=== PATIENT | male | born 1950 | race Hispanic/Latino ===

== ENCOUNTER 2017-09-24 01:10 | Emergency (ER) | payer SELFPAY ==
[~2017-09-24] VITALS: Ht 165.1 cm; Wt 62.1 kg
--- OUTSIDE RECORDS SUMMARY | 2017-09-24 01:12 | XMS REPORT ---
Author Author [facility] Address Unknown Phone Unavailable Care Team Providers Care Quality Specialist Name Role Phone Unavailable Unavailable Problems This patient has no known problems. Allergies, Adverse Reactions, Alerts This patient has no known allergies or adverse reactions. Medications This patient has no known medications. Encounters Start Date/Time End Date/Time Encounter Type Admission Type Attending [facility] Care Department Encounter ID 2017-09-25 00:00:00 2017-09-25 00:00:00 Outpatient [facility] [id number] 2017-09-18 00:00:00 2017-09-18 00:00:00 Outpatient [facility] [id number] 2017-08-26 00:00:00 2017-08-26 00:00:00 Outpatient [facility] [id number] 2017-08-14 00:00:00 2017-08-14 00:00:00 Outpatient [facility] [id number] 2017-08-14 00:00:00 2017-08-14 00:00:00 Outpatient [facility] [id number] 2017-07-06 00:00:00 2017-07-06 00:00:00 Outpatient [facility] [id number] 2017-07-03 10:38:19 2017-07-03 10:38:19 Outpatient [facility] [id number] 2017-07-03 00:00:00 2017-07-03 00:00:00 Outpatient [facility] [id number] 2017-07-01 07:21:37 2017-07-01 07:21:37 Outpatient [facility] [id number] 2017-06-26 16:43:07 2017-06-26 16:43:07 Outpatient [facility] [id number] 2017-06-24 16:41:59 2017-06-24 16:41:59 Outpatient [facility] [id number] 2017-06-24 14:24:41 2017-06-24 14:24:41 Outpatient [facility] [id number] 2017-06-19 00:00:00 2017-06-19 00:00:00 Outpatient [facility] [id number] 2017-06-17 09:10:44 2017-06-17 09:10:44 Outpatient [facility] [id number] 2017-06-15 00:00:00 2017-06-15 00:00:00 Outpatient [facility] [id number] 2017-06-12 14:29:14 2017-06-12 14:29:14 Outpatient [facility] [id number] 2017-06-12 11:37:55 2017-06-12 11:37:55 Outpatient [facility] [id number] 2017-06-11 09:55:07 2017-06-11 09:55:07 Outpatient [facility] [id number] 2017-06-03 15:07:54 2017-06-03 15:07:54 Outpatient [facility] [id number] 2017-06-03 00:00:00 2017-06-03 00:00:00 Outpatient [facility] [id number] 2017-06-03 00:00:00 2017-06-03 00:00:00 Outpatient [facility] [id number] 2017-05-14 16:06:43 2017-05-14 16:06:43 Outpatient [facility] [id number] 2017-05-14 15:25:00 2017-05-14 15:25:00 Outpatient [facility] [id number] 2017-05-14 13:54:35 2017-05-14 13:54:35 Outpatient [facility] [id number] 2017-02-23 00:00:00 2017-02-23 00:00:00 Outpatient [facility] [id number] 2017-02-18 00:00:00 2017-02-18 00:00:00 Outpatient [facility] [id number] 2017-02-12 09:47:53 2017-02-12 09:47:53 Outpatient [facility] [id number] 2017-02-02 00:00:00 2017-02-02 00:00:00 Outpatient [facility] [id number] 2017-01-30 07:40:02 2017-01-30 07:40:02 Outpatient [facility] [id number] 2017-01-15 14:05:44 2017-01-15 14:05:44 Outpatient [facility] [id number] 2017-01-15 12:58:59 2017-01-15 12:58:59 Outpatient [facility] [id number] 2017-01-06 10:32:00 2017-01-06 10:32:00 Outpatient [facility] [id number] 2017-01-06 00:00:00 2017-01-06 00:00:00 Outpatient [facility] [id number] 2017-01-06 00:00:00 2017-01-06 00:00:00 Outpatient [facility] [id number] 2016-12-31 10:36:21 2016-12-31 10:36:21 Outpatient [facility] [id number]
[2017-09-24] MEDS ORDERED: LYRICA75 MG PO (01:33)
[2017-09-24] MEDS ORDERED: ASPIR 8181 MG PO (01:33)
[2017-09-24] MEDS ORDERED: LOSARTAN POTAS100 MG PO (01:33)
[2017-09-24] MEDS ORDERED: METFORMIN HCL500 MG PO (01:33)
[2017-09-24] MEDS ORDERED: ESIDRIX25 MG PO (01:33)
[2017-09-24] MEDS ORDERED: ATORVASTATIN CA20 MG PO (01:33)
[2017-09-24] MEDS ORDERED: DEXILANT30 MG PO (01:33)
[2017-09-24] MEDS ORDERED: ULTRAM 50MG50 MG PO (01:33)
== END 2017-09-24 02:39 | disposition left against medical advice (07) ==
LOC: ER 01:10
DX: M79.605 Pain in left leg (principal)
CPT/HCPCS: 93005

== ENCOUNTER 2020-02-14 13:54 | Emergency (ER) | payer MEDICARE, OTHER ==
[~2020-02-14] VITALS: Ht 165.1 cm; Wt 61.2 kg
[~2020-02-14 13:54] MED LIST: ASPIR 8181 MG PO; ATORVASTATIN CA20 MG PO; DEXILANT30 MG PO; ESIDRIX25 MG PO; LOSARTAN POTAS100 MG PO; LYRICA75 MG PO; METFORMIN HCL500 MG PO; ULTRAM 50MG50 MG PO
--- NOTE | 2020-02-14 14:14 | Emergency Department Note ---
History of Present Illnes History of Present Illness Chief Complaint: Extremity Trauma/Pain History of Present Illness This is a 69 year old male states he struck left foot and due to the history of neuropathy on the left side he went to [place] [facility] who x-rayed the leg and found no fractures. He is still having pain that is now going all the way up his leg into the hip area. he has been hurting like this for 10 years, getting worse, neurontin not working, looking for something else. Past Medical History Hypertension, Diabetes, Cancer Other Medical History neoropathy Past Surgical History: Cholecysctectomy Other Surgery prostate. Arrival Mode: [facility] [employer] Required: No Radiation: Reports proximal Severity: moderate Onset quality: gradual Duration (how long): month(s) Progression: waxing and waning Relieving factors: immobilization Exacerbating factors: movement Treatments prior to arrival: none Past Medical/Family History Physician Review I have reviewed the patient's past medical and family history. Any updates have been documented here. Past Medical History Recent Fever: No Clinical Suspicion of Infectio: No New/Unexplained Change in Ment: No Past Medical History: Hypertension, Diabetes Other Medical History: neuropathy Past Surgical History: Cholecysctectomy Social History Smoking Cessation: Unknown if ever smoked Alcohol Use: Social Any Illegal Drug Use: No TB Exposure/Symptoms: No Physically hurt or threatened: No Other Any Pre-Existing Lines (PICC,: No Review of Systems Review of Systems Constitutional: Reports no symptoms EENTM: Reports no symptoms Cardiovascular: Reports no symptoms Respiratory: Reports no symptoms Gastrointestinal: Reports no symptoms Genitourinary: Reports no symptoms Musculoskeletal: Reports as per HPI, Reports joint pain, Reports muscle pain Integumentary: Reports no symptoms Neurological: Reports no symptoms Psychological: Reports no symptoms Endocrine: Reports no symptoms Hematological/Lymphatic: Reports no symptoms Physical Exam Related Data Allergies: Coded Allergies: No Known Allergies (Unverified , 09/24/17) Triage Vital Signs Vital Signs Date Time Temp Pulse Resp B/P (MAP) Pulse Ox O2 Delivery O2 Flow Rate FiO2 02/14/20 13:56 98.3 90 16 178/67 100 Physical Exam CONSTITUTIONAL Constitutional: Present well-developed, Present well-nourished HENT HENT: Present normocephalic, Present atraumatic, Present oropharynx clear/moist, Present nose normal HENT L/R: Present left ext ear normal, Present right ext ear normal EYES Eyes: Reports PERRL, Reports conjunctivae normal NECK Neck: Present ROM normal PULMONARY Pulmonary: Present effort normal, Present breath sounds normal CARDIOVASCULAR Cardiovascular: Present regular rhythm, Present heart sounds normal, Present capillary refill normal, Present normal rate GASTROINTESTINAL Abdominal: Present soft, Present nontender, Present bowel sounds normal GENITOURINARY Genitourinary: Present exam deferred SKIN Skin: Present warm, Present dry MUSCULOSKELETAL Musculoskeletal: Present ROM normal, Present tenderness (left foot: ecchymosis, mild swelling, good capillary refill, warm and dry, dorsalis pulses good, normal hair pattern, thigh muscle tender. ) NEUROLOGICAL Neurological: Present alert, Present oriented x 3, Present no gross motor or sensory deficits PSYCHOLOGICAL Psychological: Present mood/affect normal, Present judgement normal Assessment & Plan Medical Decision Making MDM chronic pain, no acute Reassessment Reassessment time: 15:11 Reassessment walking steady gaits Assessment & Plan Final Impression: (1) Acute thigh pain (2) Neuropathy (3) Pain, chronic Depart Disposition: HOME, SELF-CARE Last Vital Signs Date Time Temp Pulse Resp B/P (MAP) Pulse Ox O2 Delivery O2 Flow Rate FiO2 02/14/20 13:56 98.3 90 16 178/67 100 Home Meds Active Scripts Ibuprofen (IBUPROFEN IB) 200 Mg Tablet, 3 TAB PO Q6H PRN for pain, #60 Prov:ALENA BAHENA MD 02/14/20 Tramadol Hcl* (ULTRAM 50MG*) 50 Mg Tab, 50 MG PO Q6H for left leg pain, #30 TAB Prov:ALENA BAHENA MD 02/14/20 Reported Medications Dexlansoprazole (DEXILANT) 30 Mg Mark., 30 MG PO DAILY THERAPEUTIC INTERCHANGED WITH PROTONIX PER [facility] 09/24/17 Pregabalin (LYRICA) 75 Mg Cap, 75 MG PO BID, #30 CAP 09/24/17 Hydrochlorothiazide* (ESIDRIX*) 25 Mg Tab, 25 MG PO DAILY, TAB 09/24/17 Tramadol Hcl* (ULTRAM 50MG*) 50 Mg Tab, 50 MG PO Q12HR PRN for PAIN, TAB 09/24/17 Aspirin (ASPIR 81) 81 Mg Tablet., 81 MG PO DAILY 09/24/17 Atorvastatin Calcium (ATORVASTATIN CALCIUM) 20 Mg Tablet, 40 MG PO HS, #30 TAB 09/24/17 Losartan Potassium (LOSARTAN POTASSIUM) 100 Mg Tablet, 100 MG PO DAILY, TAB 09/24/17 Metformin Hcl (METFORMIN HCL) 500 Mg Tablet, 500 MG PO BID, #60 TAB 09/24/17 Medications in the ED tyl # 3, ibuprofen. Physician Attestation Provider Attestation [employer] search no record ALENA BAHENA MD Feb 14, 2020 14:14
[2020-02-14] MEDS ORDERED: ACETAMINOPHEN/CODEINE 300MG - 30MG TAB PO ONE (14:15)
[2020-02-14] MEDS ORDERED: ONDANSETRON HCL 4 MG ORAL DISINTEGRATING TAB PO ONE (14:15)
[2020-02-14] MEDS ORDERED: IBUPROFEN 600 MG TAB PO ONE (14:15)
[2020-02-14] MEDS ORDERED: IBUPROFEN IB200 MG PO (14:21)
[2020-02-14] MEDS ORDERED: ULTRAM 50MG50 MG PO (14:21)
[2020-02-14] MEDS ORDERED: ONDANSETRON HCL 4 MG ORAL DISINTEGRATING TAB ONE (14:38)
[2020-02-14] MEDS ORDERED: IBUPROFEN 600 MG TAB ONE ×2 (14:39→14:50)
[2020-02-14] MEDS ORDERED: ACETAMINOPHEN/CODEINE ELIX 120-12 MG/5 ML UDC ONE (14:41)
[2020-02-14] MEDS ORDERED: ACETAMINOPHEN/CODEINE ELIX 120-12 MG/5 ML UDC NG ONE (14:45)
== END 2020-02-14 15:37 | disposition home or self-care (01) ==
LOC: FSED 13:54
DX: M79.652 Pain in left thigh (principal); E11.40 Type 2 diabetes mellitus with diabetic neuropathy, unspecified; G89.29 Other chronic pain; I10 Essential (primary) hypertension
CPT/HCPCS: 99283; Q0162

== ENCOUNTER 2020-09-05 15:21 | Emergency (ER) | payer MEDICARE ==
[~2020-09-05] VITALS: Ht 165.1 cm; Wt 61.2 kg
[~2020-09-05 15:21] MED LIST changes: +IBUPROFEN IB200 MG PO
[2020-09-05] MEDS ORDERED: HYDROCODONE/APAP 10MG-325MG TAB PO ONE (17:45)
[2020-09-05] MEDS ORDERED: TYLENOL # 31 EA PO (17:58)
[2020-09-05] MEDS ORDERED: GABAPENTIN300 MG PO (17:58)
[2020-09-05 18:29] VITALS: BP 128/74
== END 2020-09-05 19:13 | disposition home or self-care (01) ==
LOC: ER 15:23
DX: M79.662 Pain in left lower leg (principal); M79.661 Pain in right lower leg; E11.42 Type 2 diabetes mellitus with diabetic polyneuropathy; I10 Essential (primary) hypertension; G89.29 Other chronic pain
CPT/HCPCS: 99282

== ENCOUNTER 2022-02-06 15:18 | Emergency (ER) | payer MEDICARE ==
[~2022-02-06] VITALS: Ht 165.1 cm; Wt 61.2 kg
[~2022-02-06 15:18] MED LIST changes: +GABAPENTIN300 MG PO; +TYLENOL # 31 EA PO
[2022-02-06] MEDS ORDERED: SODIUM CHLORIDE 0.9% 1000ML 1,000 ML IV STA ×2 (15:56→17:32)
[2022-02-06 16:11] LABS: BASOPHILS % 0.3 % (0.0-1.0); EOSINOPHILS # (AUTO) 0.1 (0.0-0.4); EOSINOPHILS % 1.1 % (0.0-6.0); HEMATOCRIT 35.8 % (38.2-49.6); LYMPHOCYTES # (AUTO) 1.4 (1.0-3.2); LYMPHOCYTES % 16.3 % (18.0-39.1); MEAN CORPUSCULAR HEMOGLOBIN 32.2 pg (28-32); MEAN CORPUSCULAR HGB CONC 33.5 g/dL (31-35); MONOCYTES # (AUTO) 0.6 (0.2-0.8); MONOCYTES % 6.2 % (4.4-11.3); NEUTROPHILS # (AUTO) 6.7 (2.1-6.9); NEUTROPHILS % 75.6 % (38.7-80.0); PLATELET COUNT 230 x10e3/uL (140-360); RED BLOOD COUNT 3.73 x10e6/uL (4.3-5.7); RED CELL DISTRIBUTION WIDTH 12.5 % (11.7-14.4)
[2022-02-06] MEDS ORDERED: SODIUM CHLORIDE 0.9% 1000ML 1,000 ML ONE (16:12)
[2022-02-06 16:15] LABS: INR 0.89; PROTHROMBIN TIME 12.9 seconds (11.9-14.5)
[2022-02-06 16:26] LABS: ALBUMIN 3.8 g/dL (3.5-5.0); ALBUMIN/GLOBULIN RATIO 1.1 (0.8-2.0); ANION GAP 15.6 mmol/L (8-16); CALCIUM 8.4 mg/dL (8.4-10.2); CREATININE, SERUM 0.96 mg/dL (0.72-1.25); MAGNESIUM 1.4 MG/DL (1.3-2.1); POTASSIUM 4.6 mmol/L (3.5-5.1)
[2022-02-06 16:33] LABS: CREATINE KINASE MB 1.6 ng/mL (0-5.0)
[2022-02-06 16:58] LABS: ERYTHROCYTE SEDIMENTATION RATE 14 mm/hr (0-13)
[2022-02-06 17:49] LABS: CLARITY,URINE SL CLOUDY (CLEAR); COLOR,URINE AMBER (YELLOW); KETONES,URINE NEGATIVE (NEGATIVE); LEUKOCYTE ESTERASE ,URINE NEGATIVE (NEGATIVE); NITRITE,URINE NEGATIVE (NEGATIVE); PROTEIN,URINE DIPSTICK NEGATIVE (NEGATIVE); URINE UROBILINOGEN 0.2 mg/dL (0.2 - 1)
[2022-02-06 18:02] LABS: BACTERIA,URINE FEW /HPF
[2022-02-06 19:06] LABS: CREATINE KINASE MB 1.6 ng/mL (0-5.0)
[2022-02-06 19:20] VITALS: BP 169/76
== END 2022-02-06 19:21 | disposition home or self-care (01) ==
LOC: ER 16:00
DX: R53.1 Weakness (principal); T50.905A Adverse effect of unspecified drugs, medicaments and biological substances, initial encounter; G62.9 Polyneuropathy, unspecified; G89.29 Other chronic pain; Z20.822 Contact with and (suspected) exposure to COVID-19; Z79.899 Other long term (current) drug therapy; Z79.82 Long term (current) use of aspirin
CPT/HCPCS: 36415; 70450; 71045; 80053; 81001; 82550; 82553; 83735; 84484; 85025; 85610; 85651; 85730; 87086; 93005; 99284; J7030; U0002